=== PATIENT | female | born 1995 | race American Indian/Alaskan Native ===

== ENCOUNTER 2019-01-28 12:41 | Outpatient (CLI) | payer MEDICAID ==
[2019-01-28 13:20] VITALS: BP 111/64
[2019-01-28 13:34] LABS: Bacteria,Urine 1+ /HPF (Negative); Mucus,Urine 1+ /HPF
[2019-01-28 13:40] LABS: Bilirubin,Urine Negative (Negative); Color,Urine Yellow (Yellow)
[2019-01-28 13:41] LABS: Blood,Urine Negative (Negative); Urobilinogen,Urine < 2.0 mg/dL (<2.0)
== END 2019-01-28 14:31 | disposition home or self-care (01) ==
LOC: TRG 12:41
PROVIDERS: ATTEND Obstetrics & Gynecology
DX: O47.03 False labor before 37 completed weeks of gestation, third trimester (principal); O26.893 Other specified pregnancy related conditions, third trimester; R10.2 Pelvic and perineal pain; Z3A.37 37 weeks gestation of pregnancy
CPT/HCPCS: 59025; 81001

== ENCOUNTER 2021-11-22 10:06 | Day surgery (SDC) | payer BC, MEDICAID ==
[2021-11-20 10:24] LABS: Hematocrit 34.7 % (30.3-42.9); Hemoglobin 10.7 gm/dl (10.1-14.3); Mean Corpuscular Volume 71 fl (79-97); Red Blood Count 4.87 M/mm3 (3.65-5.03)
[2021-11-20 10:25] LABS: Mean Corpuscular HGB Conc 31 % (30-34); Platelet Count 269 K/mm3 (140-440); Red Cell Distribution Width 16.4 % (13.2-15.2)
--- NOTE | 2021-11-22 09:24 | Operative Report ---
Operative Report Operative Report: Preoperative diagnosis: Pelvic pain Postoperative diagnosis: Same Procedure: Diagnostic laparoscopy Surgeon: Dr. Nanda Osorio Anesthesia: GETA Complication: None EBL: Less than 50 mL IV fluids: 1 L crystalloid Urine output: 200 mL clear Drain: None Findings: Anteverted uterus with no lesions abdominal pelvic scar tissue; adnexa normal with no lesions or adhesions. No endometriotic implants noted in the pelvis. Procedure: Patient was consented in preop holding about risks benefits possible complications as well as alternatives to the procedure. After informed consent was obtained patient was taken to the operating room. She received excellent general endotracheal anesthesia and with no complication. She was then placed in the dorsal lithotomy position, prepped and draped in a sterile fashion. A timeout was verified, a Ruiz catheter was placed atraumatically. A speculum was placed in the vaginal vault, the parametria was noted to be pink with no masses lesions or nodularity. The cervix was identified, grasped with a single- tooth tenaculum, and an acorn uterine manipulator was placed atraumatically. Attention then turned to the abdomen. An umbilical incision was made with a scalpel, taken down to the fascia which was incised sharply atraumatically. 2 [id number] sutures were placed at the apex of the incision to allow for anchoring of the Mendoza trocar. The Mendoza trocar was then introduced into the abdomen atraumatically. Correct placement of the trocar was confirmed under direct visualization. The patient was placed in steep Trendelenburg. A second incision was made in the left lower quadrant, a 5 mm trocar was introduced atraumatically into the abdomen. An atraumatic grasper was placed in the 5 mm trocar port to allow for retraction and visualization. Intra-abdominal pictures were taken. There were no abdominal pelvic lesions or adhesions noted, all anatomy was noted to be within normal limits. At the completion of the procedure both trochars were removed atraumatically under direct visualization. The fascia was closed with 0 Vicryl, the skin closed with Monocryl. Pressure dressings were applied at both incision sites. The uterine manipulator and tenaculum were removed from the uterus and the cervix respectively. The Ruiz catheter was removed. The patient was extubated and taken to the recovery area in stable condition. Her family was notified of her stable condition immediately following the completion of the procedure. There were no complications. EBL less than 50 mL. All sponge needle and instrument counts were correct x2. Marla Osorio MD
--- NOTE | 2021-11-22 09:53 | Anesthesia Consultation ---
Anesthesia Consult and Med Hx Date of service: 11/22/21 - Airway Anesthetic Teeth Evaluation: Good ROM Head & Neck: Adequate Mental/Hyoid Distance: Adequate Mallampati Class: Class II Intubation Access Assessment: Probably Good - Cardiac Exam Anesthetic Concerns: mulitple facial piercing, including around the lips, which patient cannot remove. Discussed risk of damage to piercings or lips/mouth. - Pre-Operative Health Status ASA Pre-Surgery Classification: ASA3 Proposed Anesthetic Plan: General - Pulmonary Hx Smoking: No Hx Asthma: Yes (used maintenance inhalers this morning) Hx Respiratory Symptoms: No - Cardiovascular System Hx Hypertension: No - Central Nervous System CVA: No Hx Back Pain: Yes - Endocrine Hx Renal Disease: No Hx Liver Disease: No Hx Insulin Dependent Diabetes: No Hx Non-Insulin Dependent Diabetes: No Hx Thyroid Disease: No - Hematic Hx Anemia: Yes - Other Systems Hx Obesity: Yes (BMI 42) - Additional Comments Anesthesia Medical History Comments: Hx PONV.
--- NOTE | 2021-11-22 09:53 | Anesthesia Day of Surgery ---
Anesthesia Day of Surgery - Day of Surgery Patient Examined: Yes Patient H&P Reviewed: Yes Patient is NPO: Yes
[~2021-11-22 10:06] MED LIST: ACETAMINOPHEN 500 MG TAB PO SCH; CELECOXIB 200 MG CAP PO NR; GABAPENTIN 300 MG CAP PO NR; LACTATED RINGERS 1,000 ML IV SCH; MIDAZOLAM 2 MG/2 ML INJ IV NR; ONDANSETRON 4 MG/2 ML INJ IV PRN; SCOPOLAMINE TRANSDERMAL PATCH 72 HR TD NR; oxyCODONE /ACETAMINOPHEN 5-325MG TAB PO PRN
[2021-11-22] MEDS ORDERED: ceFAZolin/STERILE WATER 2 GM/20 ML SYRINGE IV NR (11:00)
[2021-11-22] MEDS ORDERED: LIDOCAINE MPF (2%) 20 MG/1 ML VIAL 5 ML ONE (11:34)
[2021-11-22] MEDS ORDERED: ROCURONIUM 50 MG/5 ML INJ IV ONE (11:34)
[2021-11-22] MEDS ORDERED: fentaNYL 100 MCG/2 ML INJ ONE (11:34)
[2021-11-22] MEDS ORDERED: propofoL 200 MG/20 ML VIAL IV ONE (11:34)
[2021-11-22] MEDS ORDERED: SODIUM CHLORIDE 0.9% IRR 1,500 ML BOTTLE IR ONE (12:05)
[2021-11-22] MEDS ORDERED: dexAMETHasone 20 MG/5 ML VIAL ONE (12:33)
[2021-11-22] MEDS ORDERED: ONDANSETRON 4 MG/2 ML INJ ONE (12:33)
[2021-11-22] MEDS ORDERED: KETOROLAC 30 MG/1 ML INJ ONE (12:34)
[2021-11-22] MEDS ORDERED: NEOSTIGMINE 10MG/10 ML INJ MDV ONE (12:34)
[2021-11-22] MEDS ORDERED: GLYCOPYRROLATE 0.4 MG/2 ML INJ ONE (12:34)
[2021-11-22] MEDS ORDERED: LACTATED RINGERS 1,000 ML ONE (12:42)
[2021-11-22] MEDS: HYDROmorphone 1 MG/1 ML INJ IV PRN ×2 (13:00→13:10)
[2021-11-22 13:39] VITALS: BP 115/63
--- NOTE | 2021-11-22 15:00 | Post Anesthesia Evaluation ---
- Post Anesthesia Evaluation Patient Participated: Yes Airway Patent: Yes Stable Respiratory Function: Yes Nausea/Vomiting: No Temp > 96.8F: Yes Pain Manageable: Yes Adequeate Hydration: Yes Anesthesia Complications: No
== END 2021-11-22 14:25 | disposition home or self-care (01) ==
LOC: OR 10:06
PROVIDERS: ATTEND Obstetrics & Gynecology
DX: R10.2 Pelvic and perineal pain (principal); D50.9 Iron deficiency anemia, unspecified; K21.9 Gastro-esophageal reflux disease without esophagitis; E66.01 Morbid (severe) obesity due to excess calories; D64.9 Anemia, unspecified; G43.909 Migraine, unspecified, not intractable, without status migrainosus; J45.909 Unspecified asthma, uncomplicated; Z20.822 Contact with and (suspected) exposure to COVID-19; F32.9 Major depressive disorder, single episode, unspecified; F41.9 Anxiety disorder, unspecified; Z83.3 Family history of diabetes mellitus; Z79.899 Other long term (current) drug therapy; Z91.040 Latex allergy status; Z68.41 Body mass index [BMI] 40.0-44.9, adult; Z87.440 Personal history of urinary (tract) infections; Z98.890 Other specified postprocedural states; Z82.49 Family history of ischemic heart disease and other diseases of the circulatory system
CPT/HCPCS: 36415; 49320; 84703; 85027; J0690; J1100; J1170; J1815; J1885; J2405; J2704; J2710; J3010; J3490; J7120; U0003